=== PATIENT | female | born 1975 | race Caucasian/White ===

== ENCOUNTER 2016-10-12 19:35 | Inpatient (IN) | payer OTHER ==
[2016-10-12 20:02] LABS: BASOPHIL 0.5 % (0-2); HCT 38.5 % (37.0-47.0); HGB 12.3 g/dl (12.5-16.0); MCH 24.7 pg (25.0-31.0); MCHC 31.9 g/dL (32.0-36.0); MCV 77.3 fL (78.0-100.0); MONOCYTE 4.9 % (0-12); MPV 10.2 fL (6.0-9.5); NEUTROPHIL 54.6 % (41-80); PLT 361 K/uL (150-400); RBC 4.98 M/uL (4.20-5.40); RDW 19.2 % (11.5-14.0); WBC 17.5 K/uL (4.0-10.5)
[2016-10-12 20:22] LABS: ALBUMIN 4.4 g/dL (3.5-5.0); BILIRUBIN - TOTAL 0.2 mg/dL (0.1-1.0); CREATININE 0.5 mg/dL (0.5-1.0); GLOBULIN (CALCULATION) 3.1 g/dL (2.2-4.2); POTASSIUM 3.4 mmol/L (3.5-5.1); TOTAL PROTEIN 7.5 g/dL (6.4-8.3)
[2016-10-13 06:49] LABS: BASOPHIL 0.3 % (0-2); EOSINOPHIL 1.3 % (0-5); HCT 34.7 % (37.0-47.0); LYMPHOCYTE 40.6 % (15-48); MCH 24.6 pg (25.0-31.0); MCHC 31.7 g/dL (32.0-36.0); MCV 77.6 fL (78.0-100.0); MONOCYTE 3.9 % (0-12); MPV 10.2 fL (6.0-9.5); NEUTROPHIL 53.9 % (41-80); PLT 289 K/uL (150-400); RBC 4.47 M/uL (4.20-5.40); WBC 12.2 K/uL (4.0-10.5)
[2016-10-13 07:00] LABS: PTT 31.5 SECONDS (23.2-31.4)
[2016-10-13 07:01] LABS: D-DIMER 2.24 ug/mLFEU (0.00-0.41)
[2016-10-13 07:09] LABS: ALBUMIN 3.7 g/dL (3.5-5.0); BILIRUBIN - TOTAL 0.2 mg/dL (0.1-1.0); CREATININE 0.5 mg/dL (0.5-1.0); GLOBULIN (CALCULATION) 2.7 g/dL (2.2-4.2); POTASSIUM 4.6 mmol/L (3.5-5.1); TOTAL PROTEIN 6.4 g/dL (6.4-8.3)
[2016-10-13 08:28] LABS: CKMB 4.04 ng/mL (0.97-4.94); TROPONIN T 0.014 ng/mL
[2016-10-13 17:32] LABS: BILIRUBIN NEGATIVE (NEGATIVE); BLOOD NEGATIVE Ery/uL (NEGATIVE); CLARITY CLEAR (CLEAR); COLOR YELLOW (YELLOW); GLUCOSE (U) NORMAL (NORMAL); KETONE (U) NEGATIVE (NEGATIVE); LEUKOCYTES NEGATIVE Leu/uL (NEGATIVE); NITRITE NEGATIVE (NEGATIVE); PROTEIN NEGATIVE (NEGATIVE); UROBILINOGEN 0.2 mg/dL (0.2-1.0)
--- NOTE | 2016-10-14 00:30 | NUR ---
CURRENT PTT LEVEL 34.9, FOLLOWING HEPARIN PROTOCOL ORDERED, AND WILL REPEAT PTT LEVEL IN 6 HOURS. WOULD BE 0630, BUT TIME CHANGES-MOVES FORWARD ONE HOUR AT 0200. SO WILL ENTER PTT FOR 0730 TO BE A 6 HOUR TIME SPAN.
--- NOTE | 2016-10-14 04:30 | NUR ---
[employer] CALLED BACK TO BEDSIDE: PT HAS BEEN VERY DIFFICULT LAB STICK, TWO LAB TECHS & RN UNABLE TO GET BLOOD, TWO RESP THERAPISTS ATTEMPTED ARTERIAL STICK FOR LAB DRAW FOR STAT LABS NOW UNSUCCESSFULY, [employer] NOTIFIED OF UNABLE TO GET ORDERED BLOOD. STATES WILL TALK WITH ER MD ABOUT POSSIBLE CENTRAL LINE PLACEMENT DUE TO PT ON HEPARIN GTT WITH FREQUENT LABS. PT TALKING WITH [employer] AT BEDSIDE AND AGREEING TO GO DOWN TO CT FOR ORDERED SCAN OF CHEST AT THIS TIME. VSS. AT BEDSIDE, CALL LIGHT IN REACH.
[2016-10-14 07:30] LABS: BASOPHIL 0.3 % (0-2); EOSINOPHIL 2.6 % (0-5); HCT 35.5 % (37.0-47.0); HGB 11.3 g/dl (12.5-16.0); LYMPHOCYTE 25.5 % (15-48); MCH 24.8 pg (25.0-31.0); MCHC 31.8 g/dL (32.0-36.0); MONOCYTE 3.3 % (0-12); MPV 9.6 fL (6.0-9.5); NEUTROPHIL 68.3 % (41-80); PLT 295 K/uL (150-400); RBC 4.55 M/uL (4.20-5.40); RDW 19.4 % (11.5-14.0); WBC 13.3 K/uL (4.0-10.5)
--- NOTE | 2016-10-14 07:35 | NUR ---
ON 10/13/[address] Mishra NOTIFIED OF PTS PTT LEVEL OF 22.5. DR. Mishra ORDERED TO FOLLOW HEPARIN PROTOCOL, PROTOCOL FOLLOWED AND TO REPEAT PTT AT 1800. PTT REPEATED AT 1800, REPORTED LEVEL TO DR. Mishra, NO NEW ORDERS AT THIS TIME, DR. Mishra WANTED TO REPEAT PTT AT 2100 AND CONTINUE TO FOLLOW THE HEAPARIN PROTOCOL AT THIS TIME.
[2016-10-14 07:47] LABS: INR 1.02 (0.9-1.2); PTT 45.1 SECONDS (23.2-31.4)
[2016-10-14 07:55] LABS: BILIRUBIN - TOTAL 0.2 mg/dL (0.1-1.0); CREATININE 0.6 mg/dL (0.5-1.0); GLOBULIN (CALCULATION) 2.9 g/dL (2.2-4.2); POTASSIUM 4.2 mmol/L (3.5-5.1); TOTAL PROTEIN 6.9 g/dL (6.4-8.3)
[2016-10-14 07:56] LABS: CKMB 2.42 ng/mL (0.97-4.94); TROPONIN T < 0.010 ng/mL
== END 2016-10-14 10:30 | disposition other institution (70) | DRG 871 ==
LOC: FER 19:35 → FTCU 10-13 00:05
PROVIDERS: Nurse Practitioner Family; ADMIT Internal Medicine
DX: A41.9 Sepsis, unspecified organism (principal); I26.99 Other pulmonary embolism without acute cor pulmonale; J18.9 Pneumonia, unspecified organism; I51.9 Heart disease, unspecified; E11.9 Type 2 diabetes mellitus without complications; I10 Essential (primary) hypertension; K21.9 Gastro-esophageal reflux disease without esophagitis; K31.84 Gastroparesis; K44.9 Diaphragmatic hernia without obstruction or gangrene; S92.902D Unspecified fracture of left foot, subsequent encounter for fracture with routine healing; Z90.49 Acquired absence of other specified parts of digestive tract; Z88.8 Allergy status to other drugs, medicaments and biological substances; Z82.1 Family history of blindness and visual loss; Z83.3 Family history of diabetes mellitus; Z82.49 Family history of ischemic heart disease and other diseases of the circulatory system; Z83.6 Family history of other diseases of the respiratory system; Z82.3 Family history of stroke; Z87.891 Personal history of nicotine dependence; R00.0 Tachycardia, unspecified
CPT/HCPCS: 36415; 71010; 71275; 80053; 81003; 82550; 82553; 82962; 83605; 84484; 85025; 85379; 85610; 85730; 87040; 87324; 87449; 93005; 93970; 94010; 94640; J0456; J1644; J2060; J2270; J2405; Q9967